=== PATIENT | female | born 1965 | race Caucasian/White ===

== ENCOUNTER 2024-01-16 13:10 | Inpatient (IN) | payer BC, OTHER, SELFPAY ==
[~2024-01-16 13:10] MED LIST: Iopamidol-370 76% 500 ML MDV (1 ML CHARGE) ONE
[2024-01-16 14:03] LABS: #Basophils 0.06 10x3/uL (0.0-0.2); %Basophils 0.8 % (0.0-1.0); %Eosinophils 0.5 % (0.0-10.0); %Lymphocytes 40.9 % (21.0-51.0); %Monocytes 5.5 % (0.0-10.0); Hematocrit 43.7 % (36.0-47.0); Hemoglobin 15.3 g/dL (12.0-16.0); Mean Corpuscular Hemoglobin 30.8 pg (27.0-31.0); Mean Corpuscular Volume 88.1 fL (78.0-98.0); Mean Platelet Volume 9.6 fL (7.4-10.4); Platelet Count 336 10x3/uL (130-400); RBC Distribution Width 13.5 % (11.5-14.5); Red Blood Cell (RBC) Count 4.96 mill/uL (4.20-5.40)
[2024-01-16] MEDS ORDERED: Diazepam 10 MG/2 ML SYRINGE ONE ×4 (14:08→20:02)
[2024-01-16 15:15] LABS: Globulin 3.8 g/dL (2.4-3.5)
[2024-01-16 15:19] LABS: ALT (SGPT) 53 U/L (8-55); AST (SGOT) 33 U/L (5-34); Albumin 3.9 g/dL (3.5-5.0); Alkaline Phosphatase 149 U/L (40-110); Anion Gap 24 mmol/L (10-20); BUN (Urea Nitrogen) 13 mg/dL (9.8-20.1); Bilirubin, Total 0.4 mg/dL (0.2-1.2); Calc. Creatinine Clearance 0 mL/min (70-130); Carbon Dioxide 20 mmol/L (22-29); Chloride 102 mmol/L (98-107); Estimated GFR 85; Glucose 119 mg/dL (70-105); Lipase 29 U/L (8-78); Protein, Total 7.7 g/dL (6.0-8.3); Sodium 142 mmol/L (136-145)
[2024-01-16 15:20] LABS: Acetaminophen Less than 10 mcg/mL (10.0-30.0); Alcohol 267.5 mg/dL (Less than 10); Salicylate Less than 8.0 mg/dL (15.0-30.0)
[2024-01-16 18:49] LABS: Magnesium 2.3 mg/dL (1.6-2.6)
[2024-01-16 18:59] LABS: Amphetamine Not Detected (NotDetected); Barbiturates Screen Not Detected (NotDetected); Benzodiazepine Screen Detected (NotDetected); Cocaine Metabolite Screen Not Detected (NotDetected); Methadone Not Detected (NotDetected); Methamphetamine Not Detected (NotDetected); Opiate Screen Not Detected (NotDetected); Oxycodone Screen Not Detected (NotDetected); Phencyclidine (PCP) Not Detected (NotDetected); THC/Cannabinoid Screen Not Detected (NotDetected); Tricyclic Screen Not Detected (NotDetected)
[2024-01-16 19:31] LABS: Troponin I Less than 0.010 ng/mL (< 0.028)
[2024-01-16 22:07] LABS: Bacteria/HPF 2+ HPF (None Seen); Bilirubin Negative (Negative); Blood, Urine Trace (Negative); CAUTI Indications for Culture Alt mental st,lethar; Clarity Extra Turbid (Clear); Glucose, Urine (Dipstick) Normal (Negative); Ketone, Urine 10 mg/dL (Negative); Leukocyte 500 Leu/uL (Negative); Nitrite Negative (Negative); Protein, Urine (Dipstick) 50 mg/dL (Neg-Trace); Specific Gravity, Urine 1.018 (1.002-1.036); Squamous Epithelial Greater than 50 HPF (0-3); Urobilinogen Normal mg/dL (Less than 2); WBC/HPF Greater than 50 HPF (0-3)
[2024-01-16 22:10] LABS: Urine Culture Reflex Yes Yes
[2024-01-16] MEDS ORDERED: Electrolyte Replacement Protocol 1 EACH FS SCH (23:00)
[2024-01-16] MEDS ORDERED: Thiamine HCl 200 MG/2 ML VIAL ONE (23:34)
[2024-01-16] MEDS ORDERED: chlordiazePOXIDE HCl 25 MG CAP ONE (23:34)
[2024-01-16] MEDS: chlordiazePOXIDE HCl 25 MG CAP PO SCH (23:37)
[2024-01-16] MEDS: Thiamine HCl 200 MG/2 ML VIAL SLOW IVP SCH (23:40)
[2024-01-16] MEDS: Lactated Ringer's 1,000 ML IV SCH (23:40)
[2024-01-16 23:46] VITALS: BMI 36.6
[2024-01-17 00:19] LABS: Phosphorus 3.6 mg/dL (2.3-4.7)
[2024-01-17] MEDS ORDERED: Acetaminophen 325 MG TAB ONE (03:29)
[2024-01-17] MEDS: Acetaminophen 325 MG TAB PO PRN (03:32)
[2024-01-17] MEDS ORDERED: chlordiazePOXIDE HCl 25 MG CAP ONE ×3 (04:28→12:49)
[2024-01-17] MEDS ORDERED: Ondansetron PF 4 MG/2 ML Vial ONE (04:28)
[2024-01-17] MEDS: chlordiazePOXIDE HCl 25 MG CAP PO SCH (04:33)
[2024-01-17] MEDS: Ondansetron PF 4 MG/2 ML Vial IVP SCH (04:33)
[2024-01-17] MEDS: Levothyroxine Sodium 88 MCG TAB PO SCH (06:42)
[2024-01-17] MEDS ORDERED: chlordiazePOXIDE HCl 5 MG CAP ONE (07:53)
[2024-01-17] MEDS ORDERED: Folic Acid 1 MG TAB ONE (07:54)
[2024-01-17] MEDS ORDERED: Multivit, Therapeutic 1 TAB ONE (07:54)
[2024-01-17 08:23] LABS: #Basophils 0.07 10x3/uL (0.0-0.2); %Basophils 0.9 % (0.0-1.0); %Lymphocytes 24.7 % (21.0-51.0); %Monocytes 5.5 % (0.0-10.0); %Neutrophils 67.6 % (42.0-75.0); Hematocrit 44.5 % (36.0-47.0); Hemoglobin 14.5 g/dL (12.0-16.0); Mean Corpuscular HGB CONC 32.6 g/dL (32.0-36.0); Mean Corpuscular Hemoglobin 30.6 pg (27.0-31.0); Mean Corpuscular Volume 93.9 fL (78.0-98.0); Mean Platelet Volume 9.9 fL (7.4-10.4); Platelet Count 165 10x3/uL (130-400); RBC Distribution Width 13.7 % (11.5-14.5); Red Blood Cell (RBC) Count 4.74 mill/uL (4.20-5.40)
[2024-01-17 08:24] LABS: Globulin 3.6 g/dL (2.4-3.5)
[2024-01-17 08:32] LABS: ALT (SGPT) 42 U/L (8-55); AST (SGOT) 31 U/L (5-34); Albumin 3.8 g/dL (3.5-5.0); Alkaline Phosphatase 143 U/L (40-110); Anion Gap 22 mmol/L (10-20); BUN (Urea Nitrogen) 8 mg/dL (9.8-20.1); Bilirubin, Total 0.9 mg/dL (0.2-1.2); Calc. Creatinine Clearance 127 mL/min (70-130); Calcium 8.6 mg/dL (7.8-10.44); Carbon Dioxide 16 mmol/L (22-29); Chloride 106 mmol/L (98-107); Estimated GFR 90; Glucose 111 mg/dL (70-105); Potassium 4.4 mmol/L (3.5-5.1); Protein, Total 7.4 g/dL (6.0-8.3); Sodium 140 mmol/L (136-145)
[2024-01-17] MEDS ORDERED: Lorazepam 2 MG/ML VIAL SLOW IVP PRN (08:56)
[2024-01-17] MEDS: Folic Acid 1 MG TAB PO SCH (08:57)
[2024-01-17] MEDS: Multivit, Therapeutic 1 TAB PO SCH (08:57)
[2024-01-17] MEDS: Venlafaxine HCl XR 150 MG CAP PO SCH (08:57)
[2024-01-17] MEDS ORDERED: Promethazine 25 MG TAB ONE (09:06)
[2024-01-17] MEDS: Lactated Ringer's 1,000 ML IV SCH (09:26)
[2024-01-17] MEDS: Promethazine 25 MG TAB PO SCH ×2 (09:26→20:28)
[2024-01-17] MEDS: Enoxaparin 40 MG (0.4 mL) SYRINGE SC SCH (09:26)
[2024-01-17] MEDS: rOPINIRole HCl 2 MG TAB PO SCH (20:29)
[2024-01-17] MEDS ORDERED: QUEtiapine 200 MG TAB PO SCH (21:00)
[2024-01-17] MEDS: Benzonatate 100 MG CAP PO PRN (22:27)
[2024-01-17] MEDS: guaiFENesin ER 600 MG TAB PO PRN (22:27)
[2024-01-17] MEDS: Loratadine 10 MG TAB PO PRN (22:27)
[2024-01-18 04:53] LABS: #Basophils 0.04 10x3/uL (0.0-0.2); %Basophils 0.6 % (0.0-1.0); %Eosinophils 4.8 % (0.0-10.0); %Lymphocytes 35.4 % (21.0-51.0); %Monocytes 6.7 % (0.0-10.0); %Neutrophils 52.2 % (42.0-75.0); Hemoglobin 12.2 g/dL (12.0-16.0); Mean Corpuscular Hemoglobin 31.1 pg (27.0-31.0); Mean Corpuscular Volume 94.4 fL (78.0-98.0); Mean Platelet Volume 9.5 fL (7.4-10.4); Platelet Count 227 10x3/uL (130-400); RBC Distribution Width 13.5 % (11.5-14.5); Red Blood Cell (RBC) Count 3.92 mill/uL (4.20-5.40)
[2024-01-18 05:15] LABS: Phosphorus 3.1 mg/dL (2.3-4.7)
[2024-01-18 05:21] LABS: ALT (SGPT) 34 U/L (8-55); AST (SGOT) 28 U/L (5-34); Albumin 3.3 g/dL (3.5-5.0); Alkaline Phosphatase 116 U/L (40-110); Anion Gap 14 mmol/L (10-20); BUN (Urea Nitrogen) 6 mg/dL (9.8-20.1); Calc. Creatinine Clearance 127 mL/min (70-130); Calcium 8.3 mg/dL (7.8-10.44); Carbon Dioxide 23 mmol/L (22-29); Chloride 107 mmol/L (98-107); Estimated GFR 90; Globulin 2.8 g/dL (2.4-3.5); Glucose 98 mg/dL (70-105); Magnesium 1.9 mg/dL (1.6-2.6); Potassium 3.1 mmol/L (3.5-5.1); Protein, Total 6.1 g/dL (6.0-8.3); Sodium 141 mmol/L (136-145)
[2024-01-18] MEDS: Potassium Chloride 20 MEQ TAB PO SCH (06:39)
[2024-01-18] MEDS: Enoxaparin 40 MG (0.4 mL) SYRINGE SC SCH (08:43)
[2024-01-18] MEDS: Magnesium 2 GM/50 ML(in water) 2 GM in Premix 1 BAG IVPB SCH (08:43)
[2024-01-18 12:12] LABS: Influenza A by NAA Not Detected (NotDetected); Influenza B by NAA Not Detected (NotDetected); SARS-CoV-2 NAA Rapid Test Not Detected (NotDetected)
[2024-01-18] MEDS: chlordiazePOXIDE HCl 25 MG CAP PO SCH ×2 (13:31→17:13)
[2024-01-18] MEDS: Gabapentin 300 MG CAP PO SCH ×2 (13:31→21:02)
[2024-01-18] MEDS: Promethazine 25 MG TAB PO PRN (13:32)
[2024-01-19 05:14] LABS: #Basophils 0.06 10x3/uL (0.0-0.2); %Basophils 0.8 % (0.0-1.0); %Eosinophils 5.4 % (0.0-10.0); %Lymphocytes 32.4 % (21.0-51.0); %Monocytes 7.2 % (0.0-10.0); %Neutrophils 53.9 % (42.0-75.0); Hematocrit 35.3 % (36.0-47.0); Hemoglobin 11.9 g/dL (12.0-16.0); Mean Corpuscular HGB CONC 33.7 g/dL (32.0-36.0); Mean Corpuscular Hemoglobin 30.9 pg (27.0-31.0); Mean Corpuscular Volume 91.7 fL (78.0-98.0); Platelet Count 212 10x3/uL (130-400); RBC Distribution Width 13.3 % (11.5-14.5); Red Blood Cell (RBC) Count 3.85 mill/uL (4.20-5.40)
[2024-01-19 05:49] LABS: Phosphorus 3.3 mg/dL (2.3-4.7)
[2024-01-19 05:53] LABS: ALT (SGPT) 34 U/L (8-55); AST (SGOT) 26 U/L (5-34); Albumin 3.3 g/dL (3.5-5.0); Alkaline Phosphatase 108 U/L (40-110); Anion Gap 13 mmol/L (10-20); BUN (Urea Nitrogen) 10 mg/dL (9.8-20.1); Bilirubin, Total 0.6 mg/dL (0.2-1.2); Calc. Creatinine Clearance 142 mL/min (70-130); Calcium 8.5 mg/dL (7.8-10.44); Carbon Dioxide 26 mmol/L (22-29); Chloride 104 mmol/L (98-107); Estimated GFR 101; Globulin 2.9 g/dL (2.4-3.5); Glucose 86 mg/dL (70-105); Magnesium 2.2 mg/dL (1.6-2.6); Potassium 3.6 mmol/L (3.5-5.1); Protein, Total 6.2 g/dL (6.0-8.3); Sodium 139 mmol/L (136-145)
[2024-01-19] MEDS ORDERED: chlordiazePOXIDE HCl 25 MG CAP PO SCH (12:00)
[2024-01-19 18:48] LABS: Anion Gap 15 mmol/L (10-20); BUN (Urea Nitrogen) 13 mg/dL (9.8-20.1); Calc. Creatinine Clearance 134 mL/min (70-130); Calcium 8.5 mg/dL (7.8-10.44); Carbon Dioxide 20 mmol/L (22-29); Chloride 106 mmol/L (98-107); Estimated GFR 96; Glucose 194 mg/dL (70-105); Phosphorus 3.2 mg/dL (2.3-4.7); Potassium 3.8 mmol/L (3.5-5.1); Sodium 137 mmol/L (136-145)
[2024-01-19] MEDS: Thiamine 100 MG TAB PO SCH (20:43)
[2024-01-19] MEDS: chlordiazePOXIDE HCl 25 MG CAP PO SCH (20:43)
[2024-01-19] MEDS: Magnesium 2 GM/50 ML(in water) 2 GM in Premix 1 BAG IVPB SCH (20:50)
[2024-01-20 04:54] LABS: #Basophils 0.08 10x3/uL (0.0-0.2); %Basophils 1.1 % (0.0-1.0); %Eosinophils 4.6 % (0.0-10.0); %Lymphocytes 32.5 % (21.0-51.0); %Monocytes 6.4 % (0.0-10.0); %Neutrophils 55.3 % (42.0-75.0); Hematocrit 36.4 % (36.0-47.0); Hemoglobin 12.3 g/dL (12.0-16.0); Mean Corpuscular HGB CONC 33.8 g/dL (32.0-36.0); Mean Corpuscular Hemoglobin 30.6 pg (27.0-31.0); Mean Corpuscular Volume 90.5 fL (78.0-98.0); Mean Platelet Volume 9.9 fL (7.4-10.4); Platelet Count 228 10x3/uL (130-400); RBC Distribution Width 13.1 % (11.5-14.5); Red Blood Cell (RBC) Count 4.02 mill/uL (4.20-5.40)
[2024-01-20 05:20] LABS: ALT (SGPT) 32 U/L (8-55); AST (SGOT) 26 U/L (5-34); Albumin 3.2 g/dL (3.5-5.0); Alkaline Phosphatase 106 U/L (40-110); Anion Gap 13 mmol/L (10-20); BUN (Urea Nitrogen) 14 mg/dL (9.8-20.1); Bilirubin, Total 0.4 mg/dL (0.2-1.2); Calc. Creatinine Clearance 148 mL/min (70-130); Calcium 8.5 mg/dL (7.8-10.44); Carbon Dioxide 25 mmol/L (22-29); Chloride 106 mmol/L (98-107); Estimated GFR 102; Globulin 3.3 g/dL (2.4-3.5); Glucose 96 mg/dL (70-105); Magnesium 2.4 mg/dL (1.6-2.6); Protein, Total 6.5 g/dL (6.0-8.3); Sodium 140 mmol/L (136-145)
[2024-01-20 05:24] LABS: Phosphorus 3.9 mg/dL (2.3-4.7)
[2024-01-20 16:18] VITALS: BP 137/90; TEMP 98.1
[2024-01-20] MEDS: chlordiazePOXIDE HCl 25 MG CAP PO SCH (16:59)
== END 2024-01-20 17:55 | disposition home or self-care (01) | DRG 897 ==
LOC: ERS 13:10 → ERHOLD 22:38 → 2SW 01-17 13:37 → OBSVTOIN 01-17 16:14
PROVIDERS: ADMIT Family Medicine; ATTEND Family Medicine
DX: F10.239 Alcohol dependence with withdrawal, unspecified (principal); K21.9 Gastro-esophageal reflux disease without esophagitis; Z88.1 Allergy status to other antibiotic agents; Z79.899 Other long term (current) drug therapy; F32.A Depression, unspecified; Z90.49 Acquired absence of other specified parts of digestive tract; F32.9 Major depressive disorder, single episode, unspecified; F41.1 Generalized anxiety disorder; Z85.3 Personal history of malignant neoplasm of breast; E03.8 Other specified hypothyroidism; R00.0 Tachycardia, unspecified; J06.9 Acute upper respiratory infection, unspecified; R82.71 Bacteriuria
CPT/HCPCS: 36415; 71045; 71275; 80053; 80306; 80307; 81001; 83690; 83735; 84100; 84439; 84443; 84484; 85025; 85379; 87077; 87086; 87186; 93005; 93010; J1650; J2405; J3360; J3411; J3475; J7120; Q0169; Q9967